=== PATIENT | female | born 1960 | race Asian ===

== ENCOUNTER → 2024-06-09 | Outpatient (CLI) | payer OTHER, SELFPAY ==
--- NOTE | 2024-06-09 14:30 | XR_ITS ---
Examination: CT chest, without intravenous contrast. Sagittal and coronal 2-D reconstructions. Exam date and time: June 09, 2024 1441 hours Comparison December 02, 2023 INDICATIONS: Diagnosis malignant neoplasm upper outer quadrant left female breast diagnosis 2017 postlumpectomy, new 2 mm pulmonary nodule left lower lobe on CT chest December 02, 2023 CTDI:vol (mGy) 6.49 DLP: (mGycm) 238 Technique: Multiple 3.0 mm axial sections of the chest to been obtained. Bone and lung density settings are obtained. Sagittal and coronal 2-D reconstructions have been obtained. Low dose protocols were performed. One or more of the following dose reduction techniques were used; automated exposure control, adjustment of the mA and/or KV according to patient size, use of iterative reconstruction technique. Findings: No thoracic aortic aneurysm dilatation Pulmonary artery segments are not enlarged No paratracheal tracheobronchial or adenopathy Multiple subcentimeter bilateral pulmonary nodules again noted with no definite new pulmonary nodules No interval pneumonia or pulmonary edema No visualized liver or splenic lesion Absent gallbladder No pancreatic mass IMPRESSION: No definite change in multiple bilateral subcentimeter pulmonary nodules, recommend 1 continued 6 month follow-up CT chest without contrast
== END | disposition home or self-care (01) ==
PROVIDERS: PCP Family Medicine; Referring Provider Nurse Practitioner Family; Visit Provider Nurse Practitioner Family
DX: R91.8 Other nonspecific abnormal finding of lung field (principal); C50.412 Malignant neoplasm of upper-outer quadrant of left female breast
CPT/HCPCS: 71250

== ENCOUNTER → 2024-06-30 | Outpatient (CLI) | payer OTHER, SELFPAY ==
--- NOTE | 2024-06-30 09:47 | XR_ITS ---
Examination: PA lateral chest 2 views TECHNIQUE: Upright PA lateral chest 2 views Exam date and time: June 30, 2024 0958 hours Comparison November 05, 2023 INDICATIONS: Coughing 5 days. FINDINGS: Prominent hyperexpansion Scarring versus pneumonia in the lingular segment left upper lobe No interval pneumonia Normal heart size No pulmonary edema IMPRESSION: COPD with prominent hyperexpansion Parenchymal disease in the lingular segment left upper lobe, differential would include pneumonia, pulmonary scar formation, clinical correlation advised
[2024-06-30 11:21] LABS: Basophils % (Auto) 0 % (0-2.5); Eosinophils # (Auto) 0.1 Thou/mm3 (0.0-0.5); Eosinophils % (Auto) 3 % (0-10); Hematocrit 36.3 % (36.0-46.0); Immature Granulocytes % (Auto) 0 % (0-0); Immature Granulocytes Auto 0.02 Thou/mm3 (0.00-0.00); Lymphocytes # (Auto) 1.6 Thou/mm3 (1.0-4.8); Lymphocytes % (Auto) 33 % (10-50); Mean Corpuscular HGB Conc 30.3 g/dl (31.0-37.0); Mean Corpuscular Hemoglobin 21.5 pg (25.0-35.0); Mean Corpuscular Volume 71 fL (80-100); Monocytes # (Auto) 0.4 Thou/mm3 (0.0-0.8); Monocytes % (Auto) 7 % (0-12); Neutrophils # (Auto) 2.7 Thou/mm3 (1.8-7.7); Neutrophils % (Auto) 56 % (37-80); Nucleated Red Blood Cell % 0 /100 WBC (0); Platelet Count 213 Thou/mm3 (140-440); RDW Standard Deviation 34.7 fL (36.4-46.3); Red Blood Count 5.12 Miln/mm3 (4.00-5.20); White Blood Count 4.9 Thou/mm3 (3.6-11.0)
[2024-06-30 11:41] LABS: Alanine Aminotransferase 10 U/L (10-49); Albumin, Serum 4.5 gm/dL (3.4-4.8); Albumin/Globulin Ratio 1.7 (1.2-2.2); Alkaline Phosphatase 32 U/L (46-116); Anion Gap 11 (7-16); Aspartate Amino Transferase 20 U/L (0-34); BUN/Creatinine Ratio 17 Ratio (12-20); Bilirubin,Total 0.4 mg/dL (0.3-1.2); Blood Urea Nitrogen 12 mg/dL (9-23); Calcium 9.4 mg/dL (8.3-10.6); Calcium (Corrected) 9.4 mg/dL (8.5-10.1); Carbon Dioxide 26.2 mMol/L (20.0-31.0); Chloride 105 mMol/L (98-107); Creatinine (Component) 0.7 mg/dL (0.6-1.3); Globulin 2.6 gm/dL (2.3-3.5); Glucose 92 mg/dL (74-106); Osmolality,Calculated 282 (275-295); Potassium 3.7 mMol/L (3.4-5.1); Sodium 142 mMol/L (136-145); Total Protein 7.1 gm/dL (5.7-8.2); eGFR > 60 See Note
== END | disposition home or self-care (01) ==
PROVIDERS: PCP Family Medicine; Referring Provider Family Medicine; Visit Provider Family Medicine
DX: J44.9 Chronic obstructive pulmonary disease, unspecified (principal); R91.8 Other nonspecific abnormal finding of lung field; R05.1 Acute cough
CPT/HCPCS: 36415; 71046; 80053; 85025

== ENCOUNTER → 2024-07-04 | Outpatient (CLI) | payer OTHER, SELFPAY | END | disposition home or self-care (01) | LOC: SLDO 09:22 | PROVIDERS: PCP Family Medicine; Referring Provider Family Medicine; Visit Provider Family Medicine | DX: R05.9 Cough, unspecified (principal); R04.2 Hemoptysis | CPT/HCPCS: 87205 ==

== ENCOUNTER → 2024-07-06 | Outpatient (CLI) | payer OTHER, SELFPAY ==
[2024-07-06 11:32] LABS: Quantiferon-TB* See Sep Rpt
[2024-07-06 13:45] LABS: Basophils % (Auto) 1 % (0-2.5); Eosinophils # (Auto) 0.1 Thou/mm3 (0.0-0.5); Eosinophils % (Auto) 2 % (0-10); Hematocrit 38.6 % (36.0-46.0); Hemoglobin 11.9 g/dL (12.0-16.0); Immature Granulocytes % (Auto) 0 % (0-0); Immature Granulocytes Auto 0.01 Thou/mm3 (0.00-0.00); Lymphocytes % (Auto) 35 % (10-50); Mean Corpuscular HGB Conc 30.8 g/dl (31.0-37.0); Mean Corpuscular Hemoglobin 21.6 pg (25.0-35.0); Mean Corpuscular Volume 70 fL (80-100); Monocytes # (Auto) 0.3 Thou/mm3 (0.0-0.8); Monocytes % (Auto) 6 % (0-12); Neutrophils # (Auto) 3.2 Thou/mm3 (1.8-7.7); Neutrophils % (Auto) 57 % (37-80); Nucleated Red Blood Cell % 0 /100 WBC (0); Platelet Count 254 Thou/mm3 (140-440); RDW Standard Deviation 34.5 fL (36.4-46.3); Red Blood Count 5.52 Miln/mm3 (4.00-5.20); White Blood Count 5.6 Thou/mm3 (3.6-11.0)
[2024-07-06 13:56] LABS: Alanine Aminotransferase 12 U/L (10-49); Albumin, Serum 4.9 gm/dL (3.4-4.8); Albumin/Globulin Ratio 1.8 (1.2-2.2); Alkaline Phosphatase 34 U/L (46-116); Anion Gap 9 (7-16); Aspartate Amino Transferase 18 U/L (0-34); BUN/Creatinine Ratio 20 Ratio (12-20); Bilirubin,Total 0.5 mg/dL (0.3-1.2); Blood Urea Nitrogen 14 mg/dL (9-23); Calcium 9.8 mg/dL (8.3-10.6); Calcium (Corrected) 9.8 mg/dL (8.5-10.1); Carbon Dioxide 28.5 mMol/L (20.0-31.0); Chloride 103 mMol/L (98-107); Creatinine (Component) 0.7 mg/dL (0.6-1.3); Globulin 2.7 gm/dL (2.3-3.5); Glucose 78 mg/dL (74-106); Osmolality,Calculated 278 (275-295); Sodium 140 mMol/L (136-145); Total Protein 7.6 gm/dL (5.7-8.2); eGFR > 60 See Note
[2024-07-06 14:24] LABS: Ferritin 432 ng/mL (7.3-270.7); Total Iron Binding Capacity 330 mcg/dL (250-425)
[2024-07-06 14:27] LABS: CA 15-3 8.1 U/mL (<32.4); Folate 21.26 ng/mL (>5.38); Vitamin B12 416 pg/mL (211-911)
[2024-07-06 14:34] LABS: Iron 96 mcg/dL (50-170); Percent Iron Saturation 29 % (20-55); Unsaturated Iron Binding 234 (225-295)
[2024-07-06 14:48] LABS: HIV (1&2) Antibody Rapid Non-Reactive
[2024-07-07 14:35] LABS: Cocci Serology, IgM Negative (Negative)
[2024-07-08 14:13] LABS: Cocci Serology, IgG Negative (Negative)
== END | disposition home or self-care (01) ==
PROVIDERS: PCP Family Medicine; Referring Provider Internal Medicine Hematology & Oncology; Visit Provider Internal Medicine Hematology & Oncology
DX: C50.412 Malignant neoplasm of upper-outer quadrant of left female breast (principal)
CPT/HCPCS: 36415; 80053; 82607; 82728; 82746; 83540; 83550; 85025; 86300; 86331; 86480; 86635; 86703

== ENCOUNTER → 2024-07-18 | Outpatient (CLI) | payer OTHER, SELFPAY ==
[2024-07-18 13:30] LABS: Alanine Aminotransferase 13 U/L (10-49); Albumin, Serum 4.6 gm/dL (3.4-4.8); Albumin/Globulin Ratio 1.6 (1.2-2.2); Alkaline Phosphatase 35 U/L (46-116); Anion Gap 10 (7-16); Aspartate Amino Transferase 12 U/L (0-34); BUN/Creatinine Ratio 20 Ratio (12-20); Bilirubin,Total 0.3 mg/dL (0.3-1.2); Blood Urea Nitrogen 12 mg/dL (9-23); Calcium 9.7 mg/dL (8.3-10.6); Calcium (Corrected) 9.7 mg/dL (8.5-10.1); Carbon Dioxide 27.2 mMol/L (20.0-31.0); Chloride 104 mMol/L (98-107); Creatinine (Component) 0.6 mg/dL (0.6-1.3); Globulin 2.9 gm/dL (2.3-3.5); Glucose 92 mg/dL (74-106); Osmolality,Calculated 280 (275-295); Potassium 3.8 mMol/L (3.4-5.1); Sodium 141 mMol/L (136-145); Total Protein 7.5 gm/dL (5.7-8.2); eGFR > 60 See Note
[2024-07-18 16:41] LABS: Basophils % (Auto) 0 % (0-2.5); Eosinophils # (Auto) 0.1 Thou/mm3 (0.0-0.5); Eosinophils % (Auto) 2 % (0-10); Hematocrit 36.9 % (36.0-46.0); Hemoglobin 11.1 g/dL (12.0-16.0); Immature Granulocytes % (Auto) 0 % (0-0); Immature Granulocytes Auto 0.02 Thou/mm3 (0.00-0.00); Lymphocytes # (Auto) 2.9 Thou/mm3 (1.0-4.8); Lymphocytes % (Auto) 35 % (10-50); Mean Corpuscular HGB Conc 30.1 g/dl (31.0-37.0); Mean Corpuscular Hemoglobin 21.3 pg (25.0-35.0); Mean Corpuscular Volume 71 fL (80-100); Monocytes # (Auto) 0.4 Thou/mm3 (0.0-0.8); Monocytes % (Auto) 5 % (0-12); Neutrophils # (Auto) 4.8 Thou/mm3 (1.8-7.7); Neutrophils % (Auto) 58 % (37-80); Nucleated Red Blood Cell % 0 /100 WBC (0); Platelet Count 227 Thou/mm3 (140-440); RDW Standard Deviation 35.1 fL (36.4-46.3); White Blood Count 8.3 Thou/mm3 (3.6-11.0)
== END | disposition home or self-care (01) ==
PROVIDERS: PCP Family Medicine; Referring Provider Nurse Practitioner Family; Visit Provider Nurse Practitioner Family
DX: C50.412 Malignant neoplasm of upper-outer quadrant of left female breast (principal)
CPT/HCPCS: 36415; 80053; 85025

== ENCOUNTER 2024-07-20 13:09 | Outpatient (RCR) | payer OTHER, SELFPAY ==
--- NOTE | 2024-07-05 11:39 | CTCFLWUP_ITS ---
Patient: VANESSA HARPER : 1960 Page 2 of 2 FOLLOW UP NOTE DATE OF SERVICE: 07/05/2024 NAME: VANESSA HARPER ACCOUNT: [id number] : 1960 AGE: 63 INTERVAL HISTORY: Patient is complaining of hematemesis. Patient has been coughing and throwing blood. Patient states she gets chunks of blood. Patient is a [place] who moved here. 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 She states she has been also losing weight and have night rise of temperature. She started feeling feverish in the evening. ONCOLOGY HISTORY: DIAGNOSIS: Malignant neoplasm of upper-outer quadrant of left female breast [ICD10] C50.412 DATE OF DIAGNOSIS: 05/14/2017 STAGE/TNM: T1c TREATMENT HISTORY: Care?Plan Start?Date Cycle Day Intent DOXOrubicin?60,?Cyclophos?600 07/07/2017 1 14 Curative?(adjuvant) DOXOrubicin?60,?Cyclophos?600?+?G 07/29/2017 1 21 Curative?(adjuvant) PACLItaxel?80mg 11/02/2017 1 28 Curative?(adjuvant) PROLia?60mg?every?6?months 07/11/2021 1 180 Palliative HISTORY OF PRESENT ILLNESS: HISTORY OF PRESENT ILLNESS: Vanessa Harper is a 60-year-old Cuban speaking, postmenopausal [place] female with following history. 03/27/2017: Left breast diagnostic mammogram showed a suspicious mass at 3 o'clock. Ultrasound done on the same day showed a 1.5 x 1.2 x 1.1 cm hypoechoic area with irregular borders and mild vasculature at 3 o'clock position. 04/14/2017: Left breast biopsy of the mass lesion showed infiltrating ductal carcinoma ER positive, P R negative HER- 2/bia negative with [place] score of grade 3, 02/04. 07/14/2016: Patient had left breast lumpectomy and sentinel lymph node biopsy. Pathology specimen show ed a 2.6 x 1.6 x 1.5 cm unifocal high-grade medullary carcinoma. 7 lymph nodes were negative for meta static disease Oncotype DX recurrence score is 40. 07/29/2017-2017: Patient received 4 cycles of AC. 11/02/2017-03/10/2018: Patient received 12 weekly doses of Taxol. She is currently taking Neurontin for mild tingling in the fingers and feet. 04/12/2018-06/03/2018: Patient had 6300 cGy of radiation to the left breast. 06/10/2018 patient is in the clinic today for follow-up. She still has mild radiation dermatitis on t he left breast. She complains of weakness and fatigue. Other than that she seems to be doing okay. 06/24/2018: Bone density test showed osteoporosis. 08/11/2017: Patient complains of weight loss. She lost about 4 pounds. Her current weight is about 93 pounds. She also complains of loss of appetite as well as left-sided chest pains which she grades 7/1 0. She has been having this pain for last 4 weeks. She complains of dry cough. Denies any abdominal p ain. : Patient was started on tamoxifen in view of osteoporosis. 09/16/2018: Patient had CT scan of the chest abdomen and pelvis with IV contrast which showed the foll owing findings. New small pulmonary nodules in the right middle lobe and left upper lobe, not seen on the September 17 018 exam, worrisome for early metastatic pulmonary nodular disease Patient: VANESSA HARPER 008: 1960 Page 2 of 4 The 6 mm noncalcified pulmonary nodule left upper lobe ple ural-based would be amenable to CT-guided biopsy as clinically warranted 09/28/2018: QuantiFERON-TB sushma t positive. 10/20/2018: CT-guided biopsy of the left lung mass did not show any evidence of malignancy.The 6 mm no ncalcified pulmonary nodule left upper lobe pleural-based would be amenable to CT-guided biopsy as cl inically warranted 09/28/2018: QuantiFERON-TB test positive. 10/20/2018: CT-guided biopsy of the left lung mass did not show any evidence of malignancy. 11/01/2018: Patient was started on INH, rifampin as well as ethambutol for suspicious pulmonary tubercu losis. However Dr. ramires called Nayana Harper last and told her to stop taking the medicatio n since the cultures came back negative as per Ms. Harper. He prescribed oral antibiotics which lore alfaro is planning on starting from today. 12/16/2018: CT scan of the chest abdomen and pelvis with IV contrast showed stable bilateral tiny pulm onary nodules without any new nodules. 02/10/2020: PET CT scan? Stable bilateral non hypermetabolic pulmonary nodules excepting right lower l obe pulmonary nodule, now 6 mm compared to IS mm on December 23, 2019 CT study No interval metastatic dis ease Stable 8 mm focal sclerosis posterior left iliac bone. compared to l0 mm on December 23, 2019 020: CT -guided percutaneous lung biopsy of the right lung 15 mm nodule? DIAGNOSIS: Right lung, biops y: Scant benign lung tissues with focal chronic in?ammation. Fragments of skeletal muscle and ?broadipose tissues. Multiple levels examined. No malignancy in specimen. 11/19/2020: CT scan of the chest with IV contrast?Findings: No thoracic aortic aneurysmal dilatation o r dissection No pulmonary artery emboli. Minimal calci?cation septal branch left anterior descending coronary artery No paratraehcal tracheobr onehial or bronchopulmonary adenopathy 4 mm pulmonary nodule right upper lobe compared to 3.5 mm on P ET/C T February 092019 6 mm pulmonary nodule right middle lobe compared to 7 mm on January 7 mm pulmonary nodul e right lower lobe compared to 7 mm on January 2 mm pulmonary nodule left lower lobe compared to 2 mm on January I3 mm pulmonary nodule lelt lower lobe. image ()4. not seen on January 4 mm pulmonary nodule right lower lobe anteriorly not seen on January No focal liver le sions or biliary tract dilatation Absent gallbladder Common hepatic duct 9 mm No pancreatic mass No a drenal mass Aorta normal size Intact osseous structures lMPRESSlON: Compared with PET/CT February 09 020: New 13 mm pulmonary nodule left lower lobe New 4 mm pulmonary nodule right lower lobe 01/17/2021: CT scan of the abdomen and pelvis with IV contrast- Impression: No acute process in the abdomen or p terrence 06/09/2024 CT scan no definite change in multiple bilateral subcentimeter pulmonary nodules continue to follow 6 months OTHER MEDICAL HISTORY/CONDITIONS: FAMILY HISTORY: 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 Citracal plus D - 315 mg-5 mcg (200 unit) 1 tab Daily 2. ferrous sulfate - 325 mg (65 mg iron) 1 tab Daily 3. tamoxifen - 20 mg 1 tab Daily Medications Last Reconciled by Lashon Palomares MA on 07/05/2024 ALLERGIES: sumatriptan succinate REVIEW OF SYSTEMS: A complete 14-point review of systems was performed and is negative except as noted in interval histo ry. PHYSICAL EXAMINATION: VITAL SIGNS: Temperature?99.9, B/P?132/78, Oxygen?Saturation?99% Weight?89.2?lbs PAIN: 2 - Mild pain ECOG Performance Status: 1 - Symptomatic; ambulatory; restricted in strenuous activity GENERAL APPEARANCE: Appears well, in no apparent distress, appropriately interactive. HEENT: Normocephalic, no temporal wasting, normal conjunctiva, no scleral icterus, normal hearing, li ps without lesions, neck normal range of motion. CARDIOVASCULAR: Not assessed. PULMONARY: Normal respiratory effort, no respiratory distress or use of accessory muscles, speaking i n full sentences, no tachypnea. EXTREMITIES: No pedal edema or cyanosis. SKIN: Normal skin appearance. NEUROLOGIC: Alert and oriented x4. PSHYCHIATRIC: Appropriate affect, mood normal, behavior normal, intact thought and speech. LABORATORY DATA: I have personally reviewed and interpreted each of the patient?s relevant lab tests, abnormal finding s are below: Date 06/30/24 ??WHITE?BLOOD?COUNT?(Thou/mm3) 4.9 ??RED?BLOOD?COUNT?(Miln/mm3) 5.12 ??HEMOGLOBIN?(gm/dl) 11.0?L ??HEMATOCRIT?(%) 36.3 ??PLATELET?COUNT?(Thou/mm3) 213 ??NEUTROPHILS?%,?AUTO?(%) 56 ??LYMPH?%,?AUTO?(%) 33 ??NEUTROPHILS,?AUTO?(Thou/mm3) 2.7 ASSESSMENT/PLAN: #1 hematemesis. Patient has been followed in clinic with the history of QuantiFERON positive I do not see in the chart if patient ever got a bronchoscopy Patient was sent for appointment with Dr. 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 Pending appointment with Dr. 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 I looked at patient's CT scan and is concerning. 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 Patigeovanny alfaro may be having a bleeding vessel as she has been coughing chunks of blood. CT scan of chest abdomen pelvis, done 12/02/2023, showed new 2 mm pulmonary nodule left lobe, no inter nicci metastatic disease in the abdomen or pelvis, 6 month follow up scan recommended, 12/02/2023. Has e xisting order for 05/2024. 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 Bone density test showed slight improvement in the lumbar mineralization, (06/19/2023). Continues to be on tamoxifen and tolerating it very well, (07/14/2018). I advised her to stop it. CT-guided biopsy of the pulmonary nodule showed caseating granulomatous inflammation. No evidence of malignancy, (04/17/2021). I will repeat her serum QuantiFERON CT scan and sent to pulmonology #2 osteoporosis, currently on Prolia and Citracal tablets. #3 stage IIa ER positive, OK positive, HER-2/bia negative high Oncotype DX recurrence score of 40 med ullary carcinoma of the left breast. Status post adjuvant chemotherapy, radiation therapy. Currently on adjuvant tamoxi fen. Advised patient to stop taking tamoxifen as well as iron tablets Continue Prolia injections. Continue Citracal tablet p.o. Twice daily RTC in 4 weeks CBC CMP serum QuantiFERON CT scan of the chest with IV contrast cocci titers pulmonary referral RETURN TO CLINIC: I will see her in 4 weeks BILLING AND COMPLIANCE: I reviewed external records from providers outside my specialty as summarized above. I spent a total of 50 minutes on this patient?s care on the day of their visit excluding time spent related to any bi lled procedures. This time includes time spent with the patient as well as time spent documenting in the medical record, reviewing patients records and tests, obtaining history, placing orders, communi cating with other healthcare professionals, counseling the patient, family or caregiver, and/or care coordination for the diagnoses above. Electronically Signed by: Dawood Oropeza MD T: 11:37 AM CC: Lashon?Hugo,?, Yosvany?Suresh,? PCP: Madhav Stapleton Referring: Madhav Stapleton This document was completed utilizing speech recognition software. Grammatical errors, random word in sertions, pronoun errors, and incomplete sentences are an occasional consequence of this system due t o software limitations, ambient noise, and hardware issues. Any formal questions or concerns about th e content, text or information contained within the body of this dictation should be directly address ed to the provider for clarification.
== END 2024-07-29 23:59 | disposition home or self-care (01) ==
LOC: SCTC 13:09
PROVIDERS: PCP Family Medicine; Referring Provider Internal Medicine; Visit Provider Nurse Practitioner Family
DX: K92.0 Hematemesis (principal); C50.412 Malignant neoplasm of upper-outer quadrant of left female breast; Z17.0 Estrogen receptor positive status [ER+]; Z17.21 Progesterone receptor positive status; Z17.32 Human epidermal growth factor receptor 2 negative status; M81.0 Age-related osteoporosis without current pathological fracture; Z92.21 Personal history of antineoplastic chemotherapy; Z92.3 Personal history of irradiation; Z79.810 Long term (current) use of selective estrogen receptor modulators (SERMs); R91.8 Other nonspecific abnormal finding of lung field
CPT/HCPCS: 96372; 99212; J0897; G0463

== ENCOUNTER → 2024-08-03 | Outpatient (CLI) | payer OTHER, SELFPAY ==
--- NOTE | 2024-08-03 11:30 | XR_ITS ---
Examination: CT chest with intravenous contrast CT chest without intravenous contrast 2-D reconstructions Date and time of exam:July 03, 2024 1138 hours Comparison June 09, 2024 INDICATIONS: Diagnosis malignant neoplasm upper outer quadrant left female breast 2017, restaging CTDI:vol (mGy) 11.04 DLP: (mGycm) 428.3 Technique: Multiple axial sections of the thorax have been obtained. 3 mm slice thickness, from the hemidiaphragms to above the apices of the lungs. Mediastinal and lung density settings have been obtained. Intravenous contrast administered 60 cc [id number]. Noncontrast images have also been obtained. 2-D sagittal coronal images obtained. Low dose protocols were performed. One or more of the following dose reduction techniques were used; automated exposure control, adjustment of the mA and/or KV according to patient size, use of iterative reconstruction technique. Findings: No thoracic aortic aneurysmal dilatation or dissection Pulmonary artery segments are not enlarged No paratracheal tracheobronchial or bronchopulmonary adenopathy Stable bilateral pulmonary nodules New 4 mm pulmonary nodule right lower lobe image 237 No pneumonia or pulmonary edema No focal liver or splenic lesions No adrenal mass IMPRESSION: One new 4 mm pulmonary nodule right lower lobe, suggest continued 6 month follow-up CT chest without contrast
== END | disposition home or self-care (01) ==
PROVIDERS: PCP Internal Medicine Hematology & Oncology; Referring Provider Internal Medicine Hematology & Oncology; Visit Provider Internal Medicine Hematology & Oncology
DX: R91.1 Solitary pulmonary nodule (principal); C50.412 Malignant neoplasm of upper-outer quadrant of left female breast
CPT/HCPCS: 71270; A4649; Q9967

== ENCOUNTER 2024-11-29 11:22 | Outpatient (RCR) | payer OTHER, SELFPAY ==
--- NOTE | 2024-11-30 10:16 | CTCFLWUP_ITS ---
Patient: VANESSA HARPER : 1960 Page 2 of 2 FOLLOW UP NOTE DATE OF SERVICE: 11/29/2024 NAME: VANESSA HARPER ACCOUNT: [id number] : 1960 AGE: 64 INTERVAL HISTORY: Subjective: Chief Complaint Cough with occasional blood in sputum, chest pain radiating to back, night sweats, weight loss, fatigue, loss of appetite History of Present Illness Meredith Mazariegos, a patient from the [facility], presents for follow-up regarding a previous diagnosis of Mycobacterium avium complex (MAC) infection. The patient reports persistent symptoms including cough, occasional blood in sputum, chest pain radiating to the back, and fatigue. The patient has been experiencing a chronic cough, which at times produces blood-tinged sputum. She mentions difficulty in producing sputum samples for testing, despite attempts with an inhaler. The chest pain is described as bothersome, extending from the chest to the back. The patient also reports a history of night sweats and weight loss, though her weight has increased from 86 pounds in 2022 to the current 93 pounds. She expresses a desire to gain more weight but struggles with poor appetite and difficulty digesting food. Fatigue is a significant concern for the patient, particularly in the mornings. She attributes this to her longstanding anemia, which predates her hypertension diagnosis. The patient reports feeling tired upon waking and throughout the day, impacting her daily functioning. The patient denies being immunocompromised and states she has not been sick recently. She mentions a recent visit to a specialist in [place], who confirmed the absence of Mycobacterium tuberculosis complex, clarifying her diagnosis as an atypical mycobacterial infection rather than tuberculosis. Medications and Supplements - Inhaler - B12 supplement - Patient has been taking this at home - Silver centrum multivitamin - Mentioned as an alternative to B12 supplement Review of Systems General: Positive for fatigue, weight loss, and decreased appetite. Respiratory: Positive for occasional cough and chest pain. Gastrointestinal: Positive for difficulty digesting food. Musculoskeletal: Positive for back pain. Objective: Vital Signs - Weight: 93 pounds Laboratory, Imaging, and Diagnostic Test Results - Date: Not specified - Hemoglobin: 11.1 g/dL - B12: Low (specific value not provided) - Creatinine: High (specific value not provided) - LDL: Normal (specific value not provided) - Previous results: - Hemoglobin: 10 g/dL (date not specified) - Mammogram (January 2024): Heterogeneity of scone, negative for malignancy - Order routine screening mammogram ONCOLOGY HISTORY: DIAGNOSIS: Malignant neoplasm of upper-outer quadrant of left female breast [ICD10] C50.412 DATE OF DIAGNOSIS: 05/14/2017 STAGE/TNM: T1c TREATMENT HISTORY: Care?Plan Start?Date Cycle Day Intent PACLItaxel?80mg 11/02/2017 1 28 Curative?(adjuvant) PROLia?60mg?every?6?months 07/11/2021 1 180 Palliative DOXOrubicin?60,?Cyclophos?600?+?G 07/29/2017 1 21 Curative?(adjuvant) DOXOrubicin?60,?Cyclophos?600 07/07/2017 1 14 Curative?(adjuvant) HISTORY OF PRESENT ILLNESS: HISTORY OF PRESENT ILLNESS: Vanessa Harper is a 64-year-old Colombian speaking, postmenopausal Indonesian female with following history. 03/27/2017: Left breast diagnostic mammogram showed a suspicious mass at 3 o'clock. Ultrasound done on the same day showed a 1.5 x 1.2 x 1.1 cm hypoechoic area with irregular borders and mild vasculature at 3 o'clock position. 04/14/2017: Left breast biopsy of the mass lesion showed infiltrating ductal carcinoma ER positive, OR negative HER- 2/bia negative with Melisa score of grade 3, 8/9. 07/14/2016: Patient had left breast lumpectomy and sentinel lymph node biopsy. Pathology specimen showed a 2.6 x 1.6 x 1.5 cm unifocal high-grade medullary carcinoma. 7 lymph nodes were negative for metastatic disease Oncotype DX recurrence score is 40. 07/29/2017-49 2018: Patient received 4 cycles of AC. 11/02/2017-03/10/2018: Patient received 12 weekly doses of Taxol. She is currently taking Neurontin for mild tingling in the fingers and feet. 04/12/2018-06/03/2018: Patient had 6300 cGy of radiation to the left breast. 06/10/2018 patient is in the clinic today for follow-up. She still has mild radiation dermatitis on the left breast. She complains of weakness and fatigue. Other than that she seems to be doing okay. 06/24/2018: Bone density test showed osteoporosis. 08/11/2017: Patient complains of weight loss. She lost about 4 pounds. Her current weight is about 93 pounds. She also complains of loss of appetite as well as left-sided chest pains which she grades 7/10. She has been having this pain for last 4 weeks. She complains of dry cough. Denies any abdominal pain. : Patient was started on tamoxifen in view of osteoporosis. 09/16/2018: Patient had CT scan of the chest abdomen and pelvis with IV contrast which showed the following findings. 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 10/20/2018: CT-guided biopsy of the left lung mass did not show any evidence of malignancy. 11/01/2018: Patient was started on INH, rifampin as well as ethambutol for suspicious pulmonary tuberculosis. However Dr. ramires called Ms. Harper last and told her to stop taking the medication since the cultures came back negative as per Ms. Harper. He prescribed oral antibiotics which patient is planning on starting from today. 12/16/2018: CT scan of the chest abdomen and pelvis with IV contrast showed stable bilateral tiny pulmonary nodules without any new nodules. 02/10/2020: PET CT scan? Stable bilateral non hypermetabolic pulmonary nodules excepting right lower lobe pulmonary nodule, now 6 mm compared to IS mm on December 23, 2019 CT study No interval metastatic disease Stable 8 mm focal sclerosis posterior left iliac bone. compared to l0 mm on December 23, 2019 02/21/2020: CT - guided percutaneous lung biopsy of the right lung 15 mm nodule? DIAGNOSIS: Right lung, biopsy: Scant benign lung tissues with focal chronic in?ammation. Fragments of skeletal muscle and ?broadipose tissues. Multiple levels examined. No malignancy in specimen. 11/19/2020: CT scan of the chest with IV contrast?Findings: No thoracic aortic aneurysmal dilatation or dissection No pulmonary artery emboli. Minimal calci?cation septal branch left anterior descending coronary artery No paratraehcal tracheobronehial or bronchopulmonary adenopathy 4 mm pulmonary nodule right upper lobe compared to 3.5 mm on PET/C T February 092019 6 mm pulmonary nodule right middle lobe compared to 7 mm on January 7 mm pulmonary nodule right lower lobe compared to 7 mm on January 2 mm pulmonary nodule left lower lobe compared to 2 mm on January I3 mm pulmonary nodule lelt lower lobe. image ()4. not seen on January 4 mm pulmonary nodule right lower lobe anteriorly not seen on January No focal liver lesions or biliary tract dilatation Absent gallbladder Common hepatic duct 9 mm No pancreatic mass No adrenal mass Aorta normal size Intact osseous structures lMPRESSlON: Compared with PET/CT February 092019: New 13 mm pulmonary nodule left lower lobe New 4 mm pulmonary nodule right lower lobe 01/17/2021: CT scan of the abdomen and pelvis with IV contrast- Impression: No acute process in the abdomen or pelvis 06/09/2024 CT scan no definite change in multiple bilateral subcentimeter pulmonary nodules continue to follow 6 months OTHER MEDICAL HISTORY/CONDITIONS: FAMILY HISTORY: 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 B12 - 5,000-100 mcg 1 tab Daily 2. Citracal plus D - 315 mg-5 mcg (200 unit) 1 tab Daily Medications Last Reconciled by Maeve Chu MA on 11/29/2024 ALLERGIES: sumatriptan succinate REVIEW OF SYSTEMS: A complete 14-point review of systems was performed and is negative except as noted in interval history. PHYSICAL EXAMINATION: VITAL SIGNS: Temperature?98.2, B/P?127/78, Oxygen?Saturation?98% PAIN: 2 - Mild pain ECOG Performance Status: 0 - Asymptomatic and fully active GENERAL APPEARANCE: Appears well, in no apparent distress, appropriately interactive. HEENT: Normocephalic, no temporal wasting, normal conjunctiva, no scleral icterus, normal hearing, lips without lesions, neck normal range of motion. CARDIOVASCULAR: Not assessed. PULMONARY: Normal respiratory effort, no respiratory distress or use of accessory muscles, speaking in full sentences, no tachypnea. EXTREMITIES: No pedal edema or cyanosis. SKIN: Normal skin appearance. NEUROLOGIC: Alert and oriented x4. PSHYCHIATRIC: Appropriate affect, mood normal, behavior normal, intact thought and speech. LABORATORY DATA: I have personally reviewed and interpreted each of the patient?s relevant lab tests, abnormal findings are below: Date 07/06/24 07/18/24 ??WHITE?BLOOD?COUNT?(Thou/mm3) 5.6 ? 8.3 ??RED?BLOOD?COUNT?(Miln/mm3) 5.52?H ? 5.20 ??HEMOGLOBIN?(gm/dl) 11.9?L ? 11.1?L ??HEMATOCRIT?(%) 38.6 ? 36.9 ??PLATELET?COUNT?(Thou/mm3) 254 ? 227 ??NEUTROPHILS?%,?AUTO?(%) 57 ? 58 ??LYMPH?%,?AUTO?(%) 35 ? 35 ??NEUTROPHILS,?AUTO?(Thou/mm3) 3.2 ? 4.8 ??GLUCOSE,RANDOM?(mg/dL) 78 92 ? ??BLOOD?UREA?NITROGEN?(mg/dL) 14 12 ? ??CREATININE?(mg/dL) 0.70 0.60 ? ??SODIUM?(mmol/L) 140 141 ? ??POTASSIUM?(mmol/L) 4.0 3.8 ? ??CHLORIDE?(mmol/L) 103 104 ? ??CrCl?(CandG)?(ml/min) 52.54 61.30 ? ??AST/SGOT?(Unit/L) 18 12 ? ??ALT/SGPT?(Unit/L) 12 13 ? ??ALKALINE?PHOSPHATASE?(Unit/L) 34?L 35?L ? ??BILIRUBIN,?TOTAL?(mg/dL) 0.5 0.3 ? ??PROTEIN?TOTAL?(gm/dl) 7.6 7.5 ? ??ALBUMIN,?SERUM?(gm/dl) 4.9?H 4.6 ? ??GLOBULIN?(gm/dl) 2.7 2.9 ? ??ALBUMIN/GLOBULIN?RATIO 1.8 1.6 ? ??CALCIUM,?SERUM?(mg/dL) 9.8 9.7 ? ??CALCIUM?SERUM?(CORRECTED)?(mg/dL) 9.8 9.7 ? ASSESSMENT/PLAN: Assessment and Plan: Meredith Mazariegos, a patient from the [facility] with a history of M. avium infection, presents with concerns of persistent cough, occasional blood in sputum, chest pain, and unintentional weight loss. Mycobacterium avium complex (MAC) infection Assessment: Patient has a history of M. avium infection, which was confirmed by a specialist in [place]. The infection is classified as an atypical mycobacterial infection, distinct from Mycobacterium tuberculosis complex. The patient reports symptoms including persistent cough, occasional blood in sputum, chest pain radiating to the back, and previous history of night sweats and weight loss. However, the patient is not immunocompromised, which is typically necessary for M. avium to cause significant disease in healthy individuals. Recent weight trends show improvement, with a gain of 7 pounds since 2022 (from 86 to 93 pounds). Plan: - Order CT scan of the chest to evaluate current status of infection - Recommend sputum induction with hypertonic saline if patient unable to produce sputum spontaneously - Advise collection of [facility] sputum samples for further testing - Continue monitoring weight and appetite Anemia Assessment: Patient reports a long-standing history of anemia predating hypertension diagnosis. Recent lab work shows hemoglobin A of 11.1 g/dL, which has improved from a previous value of 10 g/dL. Workup for anemia has been largely negative, with normal creatinine, folate, and most other values. B12 l evels were noted to be slightly low. Plan: - Start B12 supplementation - Prescribe sublingual B12 tablets - Recommend [id number] multivitamin or B12 supplement as an alternative - Order hemoglobin electrophoresis to evaluate for hemoglobinopathies - Continue monitoring hemoglobin levels Fatigue Assessment: Patient reports persistent fatigue, particularly upon waking in the morning. This may be related to the mild anemia and low B12 levels. Plan: - Initiate B12 supplementation as outlined in anemia plan - Reassess fatigue symptoms at follow-up after initiating B12 supplementation Preventive care Assessment: Patient had a diagnostic mammogram in January of the previous year, which showed heterogeneity but was ultimately negative. Plan: osteoporosis, currently on Prolia and Citracal tablets. Continue Prolia injections. Continue Citracal tablet p.o. Twice daily stage IIa ER positive, OR positive, HER-2/bia negative high Oncotype DX recurrence score of 40 medullary carcinoma of the left breast. Status post adjuvant chemotherapy, radiation therapy. RTC in 4 weeks ORDERS: Order # Description [id number] 3D Mammogram Diagnostic + Bilateral [id number] Comprehensive Metabolic Panel - 12 + CBC with Auto Diff [id number] Hemoglobin Electrophoresis [id number] MD Follow Up [id number] Scan + Chest + With Contrast RETURN TO CLINIC: BILLING AND COMPLIANCE: I reviewed external records from providers outside my specialty as summarized above. I spent a total of 50 minutes on this patient?s care on the day of their visit excluding time spent related to any billed procedures. This time includes time spent with the patient as well as time spent documenting in the medical record, reviewing patients records and tests, obtaining history, placing orders, communicating with other healthcare professionals, counseling the patient, family or caregiver, and/or care coordination for the diagnoses above. Electronically Signed by: Dawood Oropeza MD T: 10:14 AM CC: Lashon?Hugo?, Yosvany?Suresh? PCP: Melodie Lebron Referring: Melodie Lebron This document was completed utilizing speech recognition software. Grammatical errors, random word insertions, pronoun errors, and incomplete sentences are an occasional consequence of this system due to software limitations, ambient noise, and hardware issues. Any formal questions or concerns about the content, text or information contained within the body of this dictation should be directly addressed to the provider for clarification.
== END 2024-12-26 23:59 | disposition home or self-care (01) ==
LOC: SCTC 11:22
PROVIDERS: PCP Family Medicine; Referring Provider Nurse Practitioner Family; Visit Provider Nurse Practitioner Family
DX: C50.412 Malignant neoplasm of upper-outer quadrant of left female breast (principal); Z17.0 Estrogen receptor positive status [ER+]; Z17.21 Progesterone receptor positive status; Z17.32 Human epidermal growth factor receptor 2 negative status; A31.0 Pulmonary mycobacterial infection; M81.0 Age-related osteoporosis without current pathological fracture; D64.9 Anemia, unspecified; Z92.3 Personal history of irradiation; Z92.21 Personal history of antineoplastic chemotherapy
CPT/HCPCS: 99212; G0463

== ENCOUNTER → 2024-11-30 | Outpatient (CLI) | payer OTHER, SELFPAY ==
--- NOTE | 2024-11-30 14:00 | XR_ITS ---
Examination: CT chest, without intravenous contrast. Sagittal and coronal 2-D reconstructions. Exam date and time: November 30, 2024 1347 hours Comparison August 03, 2024 INDICATIONS: Bilateral pulmonary nodules including new pulmonary nodule 4 mm in the right lower lobe on CT chest August 03, 2024, June 09, 2024, December 02, 2023 CTDI:vol (mGy) 5.88 DLP: (mGycm) 205 Technique: Multiple 3.0 mm axial sections of the chest to been obtained. Bone and lung density settings are obtained. Sagittal and coronal 2-D reconstructions have been obtained. Low dose protocols were performed. One or more of the following dose reduction techniques were used; automated exposure control, adjustment of the mA and/or KV according to patient size, use of iterative reconstruction technique. Findings: No paratracheal tracheobronchial or bronchopulmonary adenopathy No thoracic aortic aneurysm dilatation Numerous bilateral pulmonary nodules, new pulmonary nodules in the left lower lobe, 5 mm, 2 mm No pneumonia or pulmonary edema No visualized liver or splenic lesion Absent gallbladder IMPRESSION: New 5 mm in 2 mm pulmonary nodules left lower lobe, recommend continued 3-6 month follow-up CT chest without contrast
== END | disposition home or self-care (01) ==
LOC: CCTX 13:32
PROVIDERS: PCP Family Medicine; Referring Provider Internal Medicine Pulmonary Disease; Visit Provider Internal Medicine Pulmonary Disease
DX: R91.8 Other nonspecific abnormal finding of lung field (principal)
CPT/HCPCS: 71250

== ENCOUNTER → 2024-12-19 | Outpatient (CLI) | payer OTHER, SELFPAY ==
[2024-12-19 09:32] LABS: Misc Send Out* See Sep Rpt
== END | disposition home or self-care (01) ==
LOC: SCTO 09:08
PROVIDERS: PCP Family Medicine; Referring Provider Internal Medicine Hematology & Oncology; Visit Provider Internal Medicine Hematology & Oncology
DX: C50.412 Malignant neoplasm of upper-outer quadrant of left female breast (principal)
CPT/HCPCS: 82340; 82507; 82570; 83735; 83945; 83986; 84105; 84133; 84300; 84392; 84560

== ENCOUNTER → 2024-12-23 | Outpatient (CLI) | payer OTHER, SELFPAY ==
--- NOTE | 2024-12-23 10:00 | XR_ITS ---
Examination: Screening digital mammography, bilateral Computer aided detection 3-D breast Tomosynthesis, bilateral Date and time of exam: December 23, 2024, 0934 hours Compared to mammograms dating to June 09, 2019 Indication: Screening Technique: Nonmagnified MLO, CC views of the breasts to been obtained, reconstructed from 3-D Tomosynthesis images. R2 computer aided detection program utilized for evaluation of suspicious masses and/or abnormal calcifications. 3-D Tomosynthesis images obtained. Findings: The breasts are heterogeneously dense, which may obscure small masses 14 mm focal asymmetry inner right breast CC view, posterior depth, 3.6 cm from the nipple Scar formation outer left breast consistent with patient's history treated left breast carcinoma Impression: BI-RADS Category 0: Incomplete: Need additional imaging evaluation 14 mm focal asymmetry inner right breast CC view, posterior depth, 3.6 cm from the nipple, recommend follow-up spot tomographic views inner upper quadrant right breast as well as bilateral breast sonography to complete the workup
== END | disposition home or self-care (01) ==
LOC: CDIM 09:20
PROVIDERS: PCP Family Medicine; Referring Provider Internal Medicine Hematology & Oncology; Visit Provider Internal Medicine Hematology & Oncology
DX: Z12.31 Encounter for screening mammogram for malignant neoplasm of breast (principal); N64.89 Other specified disorders of breast
CPT/HCPCS: 77063; 77067

== ENCOUNTER → 2025-01-16 | Outpatient (CLI) | payer OTHER, SELFPAY ==
[2025-01-16 13:06] LABS: Basophils # (Auto) 0.0 Thou/mm3 (0.0-0.2); Basophils % (Auto) 0 % (0-2.5); Eosinophils # (Auto) 0.1 Thou/mm3 (0.0-0.5); Eosinophils % (Auto) 2 % (0-10); Hematocrit 37.6 % (36.0-46.0); Hemoglobin 11.7 g/dL (12.0-16.0); Immature Granulocytes Auto 0.02 Thou/mm3 (0.00-0.00); Lymphocytes # (Auto) 2.3 Thou/mm3 (1.0-4.8); Lymphocytes % (Auto) 38 % (10-50); Mean Corpuscular HGB Conc 31.1 g/dl (31.0-37.0); Mean Corpuscular Hemoglobin 21.7 pg (25.0-35.0); Mean Corpuscular Volume 70 fL (80-100); Monocytes # (Auto) 0.4 Thou/mm3 (0.0-0.8); Monocytes % (Auto) 7 % (0-12); Neutrophils # (Auto) 3.3 Thou/mm3 (1.8-7.7); Neutrophils % (Auto) 53 % (37-80); Nucleated Red Blood Cell # 0.00 Thou/mm3 (0.00-0.00); Nucleated Red Blood Cell % 0 /100 WBC (0); Platelet Count 247 Thou/mm3 (140-440); RDW Standard Deviation 34.5 fL (36.4-46.3); Red Blood Count 5.40 Miln/mm3 (4.00-5.20); White Blood Count 6.2 Thou/mm3 (3.6-11.0)
[2025-01-16 13:26] LABS: Alanine Aminotransferase 22 U/L (10-49); Albumin, Serum 4.4 gm/dL (3.4-4.8); Albumin/Globulin Ratio 1.5 (1.2-2.2); Alkaline Phosphatase 53 U/L (46-116); Anion Gap 10 (7-16); Aspartate Amino Transferase 28 U/L (0-34); BUN/Creatinine Ratio 13 Ratio (12-20); Bilirubin,Total 0.6 mg/dL (0.3-1.2); Blood Urea Nitrogen 13 mg/dL (9-23); Calcium 9.6 mg/dL (8.3-10.6); Calcium (Corrected) 9.6 mg/dL (8.5-10.1); Carbon Dioxide 29.2 mMol/L (20.0-31.0); Chloride 104 mMol/L (98-107); Creatinine (Component) 1.0 mg/dL (0.6-1.3); Globulin 3.0 gm/dL (2.3-3.5); Glucose 114 mg/dL (74-106); Osmolality,Calculated 286 (275-295); Potassium 4.4 mMol/L (3.4-5.1); Sodium 143 mMol/L (136-145); Total Protein 7.4 gm/dL (5.7-8.2); eGFR > 60 See Note
== END | disposition home or self-care (01) ==
LOC: SCTO 12:03
PROVIDERS: PCP Family Medicine; Referring Provider Internal Medicine Hematology & Oncology; Visit Provider Internal Medicine Hematology & Oncology
DX: C50.412 Malignant neoplasm of upper-outer quadrant of left female breast (principal)
CPT/HCPCS: 36415; 80053; 85025

== ENCOUNTER 2025-01-17 13:10 | Outpatient (RCR) | payer OTHER, SELFPAY | END 2025-01-26 23:59 | disposition home or self-care (01) | LOC: SCTC 13:10 | PROVIDERS: PCP Family Medicine; Referring Provider Internal Medicine Hematology & Oncology; Visit Provider Internal Medicine Hematology & Oncology | DX: M81.0 Age-related osteoporosis without current pathological fracture (principal); D64.9 Anemia, unspecified; E53.8 Deficiency of other specified B group vitamins; Z86.19 Personal history of other infectious and parasitic diseases; Z85.3 Personal history of malignant neoplasm of breast; Z92.3 Personal history of irradiation; Z92.21 Personal history of antineoplastic chemotherapy | CPT/HCPCS: 96372; J0897 ==

== ENCOUNTER 2025-05-30 10:03 | Emergency (ER) | payer BC, MEDICAID, SELFPAY ==
[2025-05-30 10:28] VITALS: BP 147/77; PULSE 96; RESP 16; TEMP 37.4; O2SAT 96; BMI 17.7
--- NOTE | 2025-05-30 10:39 | EKG_ITS ---
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
--- NOTE | 2025-05-30 10:39 | XR_ITS ---
EXAMINATION: PA lateral chest 2 views TECHNIQUE: Upright PA lateral chest 2 views Date and time: May 30, 2025, 1110 hours INDICATIONS: Left lower chest pain today. FINDINGS: Pneumonia left lower lobe Moderate hyperexpansion Normal heart size Moderate thoracic dextroscoliosis IMPRESSION: Significant pneumonia left lower lobe
--- NOTE | 2025-05-30 10:39 | PD.EDRME ---
Rapid Medical Screening Exam RME Arrival date/time: 05/30/25 10:03 64-year-old female with history of breast CA presents to the emergency department today for complaint of left sided chest pain Chief Complaint: General Adult/Misc Complain Vital signs: Vital Signs Temperature 99.4 F 05/30/25 10:28 Pulse Rate 96 05/30/25 10:28 Respiratory Rate 16 05/30/25 10:28 Blood Pressure 147/77 H 05/30/25 10:28 Pulse Oximetry (%) 96 05/30/25 10:28 Oxygen Delivery Method Room Air 05/30/25 10:28 Vital signs reviewed by provider: Yes Exam: On exam patient well-appearing does not appear ill or toxic and in no acute distress Clinical Impression: Lab work imaging ordered as well as EKG
[2025-05-30 11:45] LABS: Basophils # (Auto) 0.0 Thou/mm3 (0.0-0.2); Basophils % (Auto) 0 % (0-2.5); Eosinophils # (Auto) 0.1 Thou/mm3 (0.0-0.5); Eosinophils % (Auto) 1 % (0-10); Hematocrit 34.7 % (36.0-46.0); Hemoglobin 10.6 g/dL (12.0-16.0); Immature Granulocytes Auto 0.03 Thou/mm3 (0.00-0.00); Lymphocytes # (Auto) 1.5 Thou/mm3 (1.0-4.8); Lymphocytes % (Auto) 14 % (10-50); Mean Corpuscular HGB Conc 30.5 g/dl (31.0-37.0); Mean Corpuscular Hemoglobin 21.5 pg (25.0-35.0); Mean Corpuscular Volume 71 fL (80-100); Monocytes # (Auto) 0.5 Thou/mm3 (0.0-0.8); Monocytes % (Auto) 5 % (0-12); Neutrophils # (Auto) 8.3 Thou/mm3 (1.8-7.7); Neutrophils % (Auto) 79 % (37-80); Nucleated Red Blood Cell # 0.00 Thou/mm3 (0.00-0.00); Nucleated Red Blood Cell % 0 /100 WBC (0); Platelet Count 250 Thou/mm3 (140-440); RDW Standard Deviation 34.2 fL (36.4-46.3); Red Blood Count 4.92 Miln/mm3 (4.00-5.20); White Blood Count 10.5 Thou/mm3 (3.6-11.0)
[2025-05-30 12:29] LABS: B-Type Natriuretic Peptide 35 pg/mL (0-100)
[2025-05-30 13:13] LABS: Alanine Aminotransferase 35 U/L (10-49); Albumin, Serum 4.9 gm/dL (3.4-4.8); Albumin/Globulin Ratio 1.6 (1.2-2.2); Alkaline Phosphatase 88 U/L (46-116); Anion Gap 12 (7-16); Aspartate Amino Transferase 39 U/L (0-34); BUN/Creatinine Ratio 16 Ratio (12-20); Bilirubin,Total 0.4 mg/dL (0.3-1.2); Blood Urea Nitrogen 13 mg/dL (9-23); Calcium 10.0 mg/dL (8.3-10.6); Calcium (Corrected) 10.0 mg/dL (8.5-10.1); Carbon Dioxide 27.1 mMol/L (20.0-31.0); Chloride 102 mMol/L (98-107); Creatinine (Component) 0.8 mg/dL (0.6-1.3); Estimated Creatinine Clearance 44.8 mL/min (>60); Globulin 3.1 gm/dL (2.3-3.5); Glucose 138 mg/dL (74-106); Osmolality,Calculated 283 (275-295); Potassium 3.7 mMol/L (3.4-5.1); Sodium 141 mMol/L (136-145); Total Protein 8.0 gm/dL (5.7-8.2); Troponin I < 0.002 ng/mL (0.0-0.045); eGFR > 60 See Note
[2025-05-30 15:04] VITALS: BP 138/76; PULSE 80; RESP 15; TEMP 37.1; O2SAT 95
--- NOTE | 2025-05-30 15:07 | PD.EDCHEST ---
ED Chest Pain RME/HPI General Chief Complaint: General Adult/Misc Complain Stated Complaint: SEVERE L) SIDE PAIN FROM BREAST CA SURGERY Arrival date/time: 05/30/25 10:03 RME / HPI RME / HPI narrative: 05/30/25 10:03 64-year-old female with history of breast CA presents to the emergency department today for complaint of left sided chest pain DR. STEPHENS MAIN ED EVALUATION 64 year old female with history of breast cancer s/p left breast lumpectomy presents to the ED for evaluation of left-sided chest pain beginning several days ago. Pain described as aching in sensation, localized to the left side without radiation, rating as moderate. States the pain is aggravated with drinking water, lying on the left side, and coughing. No known modifying factors noted. Patient additionally reports she has had subjective fevers every night and a cough for 2 weeks. States she had consulted her PCP who prescribed 5-day course of Azithromycin which she completed with no change. Exam: On exam patient well-appearing does not appear ill or toxic and in no acute distress Impression: Lab work imaging ordered as well as EKG Related Data Home Medications ?Medication ?Instructions ?Recorded ?Confirmed tamoxifen 20 mg tablet 20 mg PO QDAY 10/19/18 02/23/24 pantoprazole 40 mg tablet,delayed 40 mg PO QDAY 04/17/21 02/23/24 release Previous Rx's ?Medication ?Instructions ?Recorded levofloxacin 500 mg tablet 500 mg PO Q24H #5 tabs 05/30/25 Allergies Allergy/AdvReac Type Severity Reaction Status Date / Time sumatriptan Allergy Unknown RASH/ Verified 05/30/25 10:06 FLUSHED Review of Systems Review of Systems Systems Reviewed: All systems reviewed, normal except as documented Past Medical History Past Medical History NEUROLOGIC: Positive Neurological Disorders and Migraine CARDIAC: Positive Hypercholesterolemia and Hypertension RESPIRATORY: Positive Bronchitis GASTROINTESTINAL: Positive Gastrointestinal Disorders and Gastroesophageal Reflux Disease REPRODUCTIVE: Positive Breast Cancer (L) and Previous Pregnancies (4 AND 1 MISCARRIAGE) MUSCULOSKELETAL: Positive Musculoskeletal Disorders and Osteoporosis HEMATOLOGIC: Positive Blood Disorders and Anemia PSYCHO/SOCIAL: Positive Anxiety OTHER HISTORY: Positive Chemotherapy, Radiation Therapy, Chicken Pox and Breast Cancer (L) Family History FAMILY HISTORY: Positive Family Cancer (Parents and brother lung cancer.) Surgical History SURGICAL: Positive Mastectomy (Partial left with lymph node dissection) and Hysterectomy (Complete) Social History SMOKING STATUS: Never smoker ED Exam Narrative Physical exam: GENERAL APPEARANCE: alert and oriented x 4, well-developed, well-nourished, no acute distress HEENT: Normocephalic, atraumatic; pupils equal, round, reactive to light; EOMI; mucous membranes pink, moist; oropharynx clear NECK: Supple LUNGS: Crackles in the left lungL; no wheezes, no rales, no rhonchi HEART: Regular rate, regular rhythm; normal S1, S2; no murmurs ABDOMEN: non distended; normal BS; soft, no tenderness, no guarding, no rebound; no masses, no organomegaly, no hernia BACK: no CVA tenderness EXTREMITIES: atraumatic; no edema NEUROLOGIC: awake; alert and oriented x4; cranial nerves II-XII grossly intact; no focal sensory or motor deficits PSYCHIATRIC: appropriate mood and affect SKIN: warm, dry, normal color; no rashes Course Quality Measures none Orders Category Date Time Status EKG (ED ONLY) *Do not use* NOW Care 05/30/25 10:39 Completed SVN NEEDED Care 05/30/25 15:[address] chest wo con Stat Exams 05/30/25 15:22 Completed EKG (ED Only) Stat Exams 05/30/25 10:39 Draft XR chest 2V Stat Exams 05/30/25 10:39 Completed B-Type Natriuretic Peptide Stat Lab 05/30/25 10:54 Completed CBC Stat Lab 05/30/25 10:54 Completed Comprehensive Metabolic Panel Stat Lab 05/30/25 10:54 Completed Sputum Culture and Gram Stain Stat Lab 05/30/25 16:21 Received Troponin I Stat Lab 05/30/25 10:54 Completed HYDROcodone*/APAP 5/325 [[place] 5/325] Med 05/30/25 17:32 Discontinued 1 tab PO X1 ONE Levofloxacin [Levaquin] Med 05/30/25 17:31 Discontinued 500 mg PO X1 ONE Sodium Chloride Rt Piedad 10% [NS Rt Piedad 10%] Med 05/30/25 15:28 Discontinued 5 ml INH X1 ONE Sodium Chloride Rt Piedad 10% [NS Rt Piedad 10%] Med 05/30/25 15:28 Discontinued 5 ml INH X1 ONE Sputum Induction NOW RT 05/30/25 15:30 Ordered Sputum Induction PRN RT 05/30/25 15:30 Ordered Vital Signs Vital signs: Vital Signs Temperature 99.4 F 05/30/25 10:28 Pulse Rate 96 05/30/25 10:28 Respiratory Rate 16 05/30/25 10:28 Blood Pressure 147/77 H 05/30/25 10:28 Pulse Oximetry (%) 96 05/30/25 10:28 Oxygen Delivery Method Room Air 05/30/25 10:28 Pulse ox is 96% on room air which is adequate. Chest Pain MDM Narrative MDM Narrative:: Celina Guy am scribing for and in the presence of Dr. Stephens. Patient remains clinically stable throughout the emergency department visit. We reviewed all the results, analysis, and treatment plans. Patient is amenable to discharge. Strict return precautions were outlined. Patient data External records reviewed:: [facility] previous records Clinical information provided by:: patient Social determinants that could affect healthcare access:: none Patient has the following chronic illnesses:: left breast cancer s/p left breast lumpectomy How is presenting disease/condition affected by chronic disease/condition?: exacerbated by Evaluation data The following diagnostics were reviewed and interpreted by me:: lab results, radiology exam(s) and EKG tracing(s) (EKG @ 10:55 AM, normal sinus rhythm, rate 89, no STEMI. ) Lab and/or radiology exams considered but not ordered:: None Interpretation Summary: Ordering Physician: Maya TORRES)Jovany NP Date of Service: 05/30/25 Procedure(s): XR chest 2V Accession Number(s): [id number] cc: Maya TORRES)Jovany NP; Ashok Castro MD; Lashon Diaz MD~ EXAMINATION: PA lateral chest 2 views TECHNIQUE: Upright PA lateral chest 2 views Date and time: May 30, 2025, 1110 hours INDICATIONS: Left lower chest pain today. FINDINGS: Pneumonia left lower lobe Moderate hyperexpansion Normal heart size Moderate thoracic dextroscoliosis IMPRESSION: Significant pneumonia left lower lobe Dictated By: Ashok Castro MD Signed By: <Electronically signed by Ashok Castro MD in OV> 05/30/25 1134 Medications / Prescriptions Medications or Prescriptions considered but not ordered:: None Medication administrations:: Medication Administration History Discontinued Medications Hydrocodone Bitart/Acetaminophen (Hydrocodone/Apap 5/325 Tablet) 1 tab PO X1 ONE Stop: 05/30/25 17:33 Levofloxacin (Levofloxacin 250 Mg Tablet) 500 mg PO X1 ONE Stop: 05/30/25 17:32 Sodium Chloride (Sodium Chloride Rt 10% 15 Ml Nebu) 5 ml INH X1 ONE Stop: 05/30/25 15:29 Sodium Chloride (Sodium Chloride Rt 10% 15 Ml Nebu) 5 ml INH X1 ONE Stop: 05/30/25 15:29 See above Consultations Consultation(s) initiated? (list below): No Diagnosis Most likely diagnosis given after review of the tests above:: Pneumonia Admission Indicated Admission indicated?: not indicated Admission Request Was there a request for admission?: No Disposition Plan Disposition Plan: Discharge Discharge Attestation Discharge Attestation: The patient and all family members were given an opportunity to ask questions and understood the discharge instructions. Discharge instructions specifically effects, indications for sooner follow up or return to the emergency department, and the expected course of current diagnosis. Patient condition: Stable Discharge Plan Plan Patient Disposition: HOME (Self Care) Prescriptions/Referrals Prescriptions/Med Rec: New levofloxacin 500 mg tablet 500 mg PO Q24H Qty: 5 0RF No Action tamoxifen 20 mg Tablet 20 mg PO QDAY pantoprazole 40 mg Tablet,Delayed Release (Dr/Ec) 40 mg PO QDAY Referrals: Lashon Arias MD [Primary Care Provider, Family Practice] - In 1 week Problem List Clinical Impression: Pneumonia Patient/Caregiver Discharge Instructions Education Materials: ED Pneumonia (Adult) Print Language: Liberian Stand Alone Forms: [facility] Award Info., Patient Portal Info Letter
--- NOTE | 2025-05-30 15:22 | XR_ITS ---
Examination: CT chest, without intravenous contrast. Sagittal and coronal 2-D reconstructions. Exam date and time: May 30, 2025, 1543 hours, comparison November 30, 2024 INDICATIONS: Chest pain coughing today, pulmonary nodules on CT chest November 30, 2024 CTDI:vol (mGy) 6.90 DLP: (mGycm) 248 Technique: Multiple 3.0 mm axial sections of the chest to been obtained. Bone and lung density settings are obtained. Sagittal and coronal 2-D reconstructions have been obtained. Low dose protocols were performed. One or more of the following dose reduction techniques were used; automated exposure control, adjustment of the mA and/or KV according to patient size, use of iterative reconstruction technique. Findings: No thoracic aortic aneurysm dilatation Pulmonary artery segments are not enlarged Mild calcification left anterior descending coronary artery No mediastinal lymph apathy. Pneumonia in the lingular segment right upper lobe and right middle lobe with dilated bronchi Stable bilateral pulmonary nodules No pulmonary edema No visualized liver or splenic lesion Absent gallbladder No pancreatic mass Prominent osteopenia IMPRESSION: Significant pneumonia in the lingular segment left upper lobe and right middle lobe with mild bronchiectasis Stable pulmonary nodules compared with November 30, 2024
--- NOTE | 2025-05-30 15:22 | PC.NURSE ---
Pt A&O times three, pt in nad, resp are even and unlabored, skin warm and dry, pt able to move all extremities, pt states this morning she started to have pain to left side of chest and she could not tolerate the pain, pt denies increased breathing difficulty, pt is coughing at time of assessment, pt resting in bed, pt on monitor
--- NOTE | 2025-05-30 15:51 | PC.NURSE ---
Pt back from CT
--- NOTE | 2025-05-30 16:16 | PC.NURSE ---
Report given to Cali EUGENE
--- NOTE | 2025-05-30 17:37 | PC.NURSE ---
Meds ordered in RME x2 hours. Received pt at 1630. Called RT to come administer meds for pt.
[2025-05-30] MEDS: LEVOFLOXACIN 250 MG TABLET 500 MG PO (17:56)
[2025-05-30] MEDS: HYDROcodone/APAP 5/325 TABLET 1 TAB PO (17:57)
[2025-05-30 19:12] VITALS: BP 121/82; PULSE 78; RESP 18; TEMP 36.9; O2SAT 97
[2025-05-30 19:47] VITALS: BP 138/76; PULSE 80; RESP 23; TEMP 37.1; O2SAT 99
--- NOTE | 2025-05-30 19:56 | PC.NURSE ---
discharging pt with meds in AUG not completed by RT. Provider okay to dc anyway.
== END 2025-05-30 19:58 | disposition home or self-care (01) ==
PROVIDERS: Nurse Practitioner Primary Care; Emergency Provider Emergency Medicine; PCP Family Medicine
DX: J18.9 Pneumonia, unspecified organism (principal)
CPT/HCPCS: 36415; 71046; 71250; 80053; 83880; 84484; 85025; 87077; 87186; 87205; 93005; 99283; A9270

== ENCOUNTER 2025-06-05 14:05 | Outpatient (RCR) | payer BC, MEDICAID, SELFPAY ==
--- NOTE | 2025-06-12 13:18 | CTCFLWUP_ITS ---
Patient: VANESSA HARPER : 1960 Page 4 of 6 FOLLOW UP NOTE DATE OF SERVICE: 06/05/2025 NAME: VANESSA HARPER ACCOUNT: [id number] : 1960 AGE: 64 INTERVAL HISTORY: Her symptoms of upper respiratory infection secondary to MAC have resolved. Patient follows with specialist and have no symptoms at this point. Patient is tolerating Prolia well. She takes calcium and vitamin D daily Past history Meredith Mazariegos, a patient from the [facility], presents for follow-up regarding a previous diagnosis of Mycobacterium avium complex (MAC) infection. The patient reports persistent symptoms including cough, occasional blood in sputum, chest pain radiating to the back, and fatigue. The patient has been experiencing a chronic cough, which at times produces blood-tinged sputum. She mentions difficulty in producing sputum samples for testing, despite attempts with an inhaler. The chest pain is described as bothersome, extending from the chest to the back. The patient also reports a history of night sweats and weight loss, though her weight has increased from 86 pounds in 2022 to the current 93 pounds. She expresses a desire to gain more weight but struggles with poor appetite and difficulty digesting food. Fatigue is a significant concern for the patient, particularly in the mornings. She attributes this to her longstanding anemia, which predates her hypertension diagnosis. The patient reports feeling tired upon waking and throughout the day, impacting her daily functioning. The patient denies being immunocompromised and states she has not been sick recently. She mentions a recent visit to a specialist in [place], who confirmed the absence of Mycobacterium tuberculosis complex, clarifying her diagnosis as an atypical mycobacterial infection rather than tuberculosis. Medications and Supplements - Inhaler - B12 supplement - Patient has been taking this at home - Silver centrum multivitamin - Mentioned as an alternative to B12 supplement Review of Systems General: Positive for fatigue, weight loss, and decreased appetite. Respiratory: Positive for occasional cough and chest pain. Gastrointestinal: Positive for difficulty digesting food. Musculoskeletal: Positive for back pain. Objective: Vital Signs - Weight: 93 pounds Laboratory, Imaging, and Diagnostic Test Results - Date: Not specified - Hemoglobin: 11.1 g/dL - B12: Low (specific value not provided) - Creatinine: High (specific value not provided) - LDL: Normal (specific value not provided) - Previous results: - Hemoglobin: 10 g/dL (date not specified) - Mammogram (January 2024): Heterogeneity of scone, negative for malignancy - Order routine screening mammogram ONCOLOGY HISTORY: DIAGNOSIS: Malignant neoplasm of upper-outer quadrant of left female breast [ICD10] C50.412 DATE OF DIAGNOSIS: 05/14/2017 STAGE/TNM: T1c TREATMENT HISTORY: Care?Plan Start?Date Cycle Day Intent DOXOrubicin?60,?Cyclophos?600 07/07/2017 1 14 Curative?(adjuvant) DOXOrubicin?60,?Cyclophos?600?+?G 07/29/2017 1 21 Curative?(adjuvant) PACLItaxel?80mg 11/02/2017 1 28 Curative?(adjuvant) PROLia?60mg?every?6?months 07/11/2021 1 180 Palliative HISTORY OF PRESENT ILLNESS: HISTORY OF PRESENT ILLNESS: Vanessa Harper is a 64-year-old Korean speaking, postmenopausal [place] female with following history. 03/27/2017: Left breast diagnostic mammogram showed a suspicious mass at 3 o'clock. Ultrasound done on the same day showed a 1.5 x 1.2 x 1.1 cm hypoechoic area with irregular borders and mild vasculature at 3 o'clock position. 04/14/2017: Left breast biopsy of the mass lesion showed infiltrating ductal carcinoma ER positive, NC negative HER- 2/bia negative with Melisa score of grade 3, 8/9. 07/14/2016: Patient had left breast lumpectomy and sentinel lymph node biopsy. Pathology specimen showed a 2.6 x 1.6 x 1.5 cm unifocal high-grade medullary carcinoma. 7 lymph nodes were negative for metastatic disease Oncotype DX recurrence score is 40. 07/29/2017-49 2018: Patient received 4 cycles of AC. 11/02/2017-03/10/2018: Patient received 12 weekly doses of Taxol. She is currently taking Neurontin for mild tingling in the fingers and feet. 04/12/2018-06/03/2018: Patient had 6300 cGy of radiation to the left breast. 06/10/2018 patient is in the clinic today for follow-up. She still has mild radiation dermatitis on the left breast. She complains of weakness and fatigue. Other than that she seems to be doing okay. 06/24/2018: Bone density test showed osteoporosis. 08/11/2017: Patient complains of weight loss. She lost about 4 pounds. Her current weight is about 93 pounds. She also complains of loss of appetite as well as left-sided chest pains which she grades 7/10. She has been having this pain for last 4 weeks. She complains of dry cough. Denies any abdominal pain. : Patient was started on tamoxifen in view of osteoporosis. 09/16/2018: Patient had CT scan of the chest abdomen and pelvis with IV contrast which showed the following findings. 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 10/20/2018: CT-guided biopsy of the left lung mass did not show any evidence of malignancy. 11/01/2018: Patient was started on INH, rifampin as well as ethambutol for suspicious pulmonary tuberculosis. However Dr. ramires called Ms. Harper last and told her to stop taking the medication since the cultures came back negative as per Ms. Harper. He prescribed oral antibiotics which patient is planning on starting from today. 12/16/2018: CT scan of the chest abdomen and pelvis with IV contrast showed stable bilateral tiny pulmonary nodules without any new nodules. 02/10/2020: PET CT scan? Stable bilateral non hypermetabolic pulmonary nodules excepting right lower lobe pulmonary nodule, now 6 mm compared to IS mm on December 23, 2019 CT study No interval metastatic disease Stable 8 mm focal sclerosis posterior left iliac bone. compared to l0 mm on December 23, 2019 02/21/2020: CT - guided percutaneous lung biopsy of the right lung 15 mm nodule? DIAGNOSIS: Right lung, biopsy: Scant benign lung tissues with focal chronic in?ammation. Fragments of skeletal muscle and ?broadipose tissues. Multiple levels examined. No malignancy in specimen. 11/19/2020: CT scan of the chest with IV contrast?Findings: No thoracic aortic aneurysmal dilatation or dissection No pulmonary artery emboli. Minimal calci?cation septal branch left anterior descending coronary artery No paratraehcal tracheobronehial or bronchopulmonary adenopathy 4 mm pulmonary nodule right upper lobe compared to 3.5 mm on PET/C T February 092019 6 mm pulmonary nodule right middle lobe compared to 7 mm on January 7 mm pulmonary nodule right lower lobe compared to 7 mm on January 2 mm pulmonary nodule left lower lobe compared to 2 mm on January I3 mm pulmonary nodule lelt lower lobe. image ()4. not seen on January 4 mm pulmonary nodule right lower lobe anteriorly not seen on January No focal liver lesions or biliary tract dilatation Absent gallbladder Common hepatic duct 9 mm No pancreatic mass No adrenal mass Aorta normal size Intact osseous structures lMPRESSlON: Compared with PET/CT February 092019: New 13 mm pulmonary nodule left lower lobe New 4 mm pulmonary nodule right lower lobe 01/17/2021: CT scan of the abdomen and pelvis with IV contrast- Impression: No acute process in the abdomen or pelvis 06/09/2024 CT scan no definite change in multiple bilateral subcentimeter pulmonary nodules continue to follow 6 months OTHER MEDICAL HISTORY/CONDITIONS: FAMILY HISTORY: 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 anastrozole - 1 mg 1 tab Daily 2. B12 - 5,000-100 mcg 1 tab Daily 3. Citracal plus D - 315 mg-5 mcg (200 unit) 1 tab Daily Medications Last Reconciled by Lashon Rai MD on 06/05/2025 ALLERGIES: sumatriptan succinate REVIEW OF SYSTEMS: A complete 14-point review of systems was performed and is negative except as noted in interval history. PHYSICAL EXAMINATION: VITAL SIGNS: Temperature?98.4, B/P?111/68, Oxygen?Saturation?99% Weight?88?lbs PAIN: 0 - No pain GENERAL APPEARANCE: Appears well, in no apparent distress, appropriately interactive. HEENT: Normocephalic, no temporal wasting, normal conjunctiva, no scleral icterus, normal hearing, lips without lesions, neck normal range of motion. CARDIOVASCULAR: Not assessed. PULMONARY: Normal respiratory effort, no respiratory distress or use of accessory muscles, speaking in full sentences, no tachypnea. EXTREMITIES: No pedal edema or cyanosis. SKIN: Normal skin appearance. NEUROLOGIC: Alert and oriented x4. PSHYCHIATRIC: Appropriate affect, mood normal, behavior normal, intact thought and speech. LABORATORY DATA: I have personally reviewed and interpreted each of the patient?s relevant lab tests, abnormal findings are below: Date 01/16/25 05/30/25 06/06/25 ??WHITE?BLOOD?COUNT?(Thou/mm3) ? 10.5 ? ??RED?BLOOD?COUNT?(Miln/mm3) ? 4.92 ? ??HEMOGLOBIN?(gm/dl) ? 10.6?L ? ??HEMATOCRIT?(%) ? 34.7?L ? ??PLATELET?COUNT?(Thou/mm3) ? 250 ? ??NEUTROPHILS?%,?AUTO?(%) ? 79 ? ??LYMPH?%,?AUTO?(%) ? 14 ? ??NEUTROPHILS,?AUTO?(Thou/mm3) ? 8.3?H ? ??GLUCOSE,RANDOM?(mg/dL) 114?H 138?H ? ??BLOOD?UREA?NITROGEN?(mg/dL) 13 13 ? ??CREATININE?(mg/dL) 1.00 0.80 ? ??SODIUM?(mmol/L) 143 141 ? ??POTASSIUM?(mmol/L) 4.4 3.7 ? ??CHLORIDE?(mmol/L) 104 102 ? ??CrCl?(CandG)?(ml/min) 37.85 46.70 ? ??AST/SGOT?(Unit/L) 28 39?H ? ??ALT/SGPT?(Unit/L) 22 35 ? ??ALKALINE?PHOSPHATASE?(Unit/L) 53 88 ? ??BILIRUBIN,?TOTAL?(mg/dL) 0.6 0.4 ? ??PROTEIN?TOTAL?(gm/dl) 7.4 8.0 ? ??ALBUMIN,?SERUM?(gm/dl) 4.4 4.9?H ? ??GLOBULIN?(gm/dl) 3.0 3.1 ? ??ALBUMIN/GLOBULIN?RATIO 1.5 1.6 ? ??CALCIUM,?SERUM?(mg/dL) 9.6 10.0 ? ??CALCIUM?SERUM?(CORRECTED)?(mg/dL) 9.6 10.0 ? ??TOTAL?IRON?BINDING?CAP?(S*)?(mcg/dL) ? ? 297 ??UNBOUND?IBC?(mcg/dL) ? ? 232 ASSESSMENT/PLAN: Mycobacterium avium complex (MAC) infection Assessment: Patient has a history of M. avium infection, which was confirmed by a specialist in [place]. The infection is classified as an atypical mycobacterial infection, distinct from Mycobacterium tuberculosis complex. Patient's symptoms are resolved Continue to follow-up with the specialist Anemia Assessment: Patient reports a long-standing history of anemia predating hypertension diagnosis. Recent lab work shows hemoglobin A of 11.1 g/dL, which has improved from a previous value of 10 g/dL. Workup for anemia has been largely negative, with normal creatinine, folate, and most other values. B12 l evels were noted to be slightly low. Plan: Continue B12 supplementation - Continue monitoring hemoglobin levels Fatigue Assessment: Patient reports persistent fatigue, particularly upon waking in the morning. This may be related to the mild anemia and low B12 levels. Continue B12 preventive care Assessment: Patient had a diagnostic mammogram in January of the previous year, which showed heterogeneity but was ultimately negative. Plan: osteoporosis, currently on Prolia and Citracal tablets. Continue Prolia injections. Continue Citracal tablet p.o. Twice daily stage IIa ER positive, NC positive, HER-2/bia negative high Oncotype DX recurrence score of 40 medullary carcinoma of the left breast. Status post adjuvant chemotherapy, radiation therapy. RTC in 4 weeks ORDERS: Order # Description [id number] Basic Metabolic Panel [id number] Basic Metabolic Panel [id number] Basic Metabolic Panel [id number] Basic Metabolic Panel [id number] Basic Metabolic Panel RETURN TO CLINIC: I reviewed the diagnosis, prognosis, and recommended treatment/procedure options with the patient (and/or their legal technical support representative), including the potential benefits, risks, side effects and alternative therapies. We also discussed the option of no treatment and the possibility of clinical trial participation, if applicable. All questions were addressed, and they demonstrated understanding. They provided informed consent to proceed with the proposed plan of care. BILLING AND COMPLIANCE: I reviewed external records from providers outside my specialty as summarized above. I spent a total of 50 minutes on this patient?s care on the day of their visit excluding time spent related to any billed procedures. This time includes time spent with the patient as well as time spent documenting in the medical record, reviewing patients records and tests, obtaining history, placing orders, communicating with other healthcare professionals, counseling the patient, family or caregiver, and/or care coordination for the diagnoses above. Electronically Signed by: Dawood Oropeza MD T: 1:16 PM CC: Lashon?KADEN Arias, Yosvany?Suresh? PCP: Lashon Chapman Referring: Lashon Chapman This document was completed utilizing speech recognition software. Grammatical errors, random word insertions, pronoun errors, and incomplete sentences are an occasional consequence of this system due to software limitations, ambient noise, and hardware issues. Any formal questions or concerns about the content, text or information contained within the body of this dictation should be directly addressed to the provider for clarification.
== END 2025-06-28 23:59 | disposition home or self-care (01) ==
LOC: SCTC 14:05
PROVIDERS: PCP Family Medicine; Referring Provider Family Medicine; Visit Provider Internal Medicine Hematology & Oncology
DX: C50.812 Malignant neoplasm of overlapping sites of left female breast (principal); Z17.0 Estrogen receptor positive status [ER+]; Z17.22 Progesterone receptor negative status; Z17.32 Human epidermal growth factor receptor 2 negative status; M81.0 Age-related osteoporosis without current pathological fracture; Z92.21 Personal history of antineoplastic chemotherapy; Z92.3 Personal history of irradiation; D64.9 Anemia, unspecified; Z86.19 Personal history of other infectious and parasitic diseases; Z79.811 Long term (current) use of aromatase inhibitors
CPT/HCPCS: 99212; G0463

== ENCOUNTER → 2025-06-06 | Outpatient (CLI) | payer BC, MEDICAID, SELFPAY ==
--- NOTE | 2025-06-06 15:08 | XR_ITS ---
EXAMINATION: PA lateral chest 2 views TECHNIQUE: Upright PA lateral chest 2 views Date and time: June 06, 2025, 1515 hours, comparison May 30, 2025 INDICATIONS: History pneumonia 2 months ago. FINDINGS: Pneumonia in the lingular segment left upper lobe obscuring detail at the left cardiac contour Moderate hyperexpansion Mild prominence left ventricle Prominent osteopenia IMPRESSION: Significant pneumonia lingular segment left upper lobe
[2025-06-06 17:10] LABS: Ferritin 396 ng/mL (7.3-270.7); Iron 65 mcg/dL (50-170); Percent Iron Saturation 21 % (20-55); Total Iron Binding Capacity 297 mcg/dL (250-425); Unsaturated Iron Binding 232 (225-295)
[2025-06-06 17:15] LABS: Folate > 24.00 ng/mL (>5.38); Vitamin B12 > 2000 pg/mL (211-911)
== END | disposition home or self-care (01) ==
LOC: CDIM 14:45 → SCTO 15:24
PROVIDERS: PCP Family Medicine; Referring Provider Family Medicine; Visit Provider Radiology Diagnostic Radiology
DX: J18.9 Pneumonia, unspecified organism (principal); C50.412 Malignant neoplasm of upper-outer quadrant of left female breast
CPT/HCPCS: 36415; 71046; 82607; 82728; 82746; 83540; 83550

== ENCOUNTER → 2025-06-09 | Outpatient (CLI) | payer BC, MEDICAID, SELFPAY ==
[2025-06-10 15:06] LABS: Cocci Serology, IgM Negative (Negative)
[2025-06-11 15:11] LABS: Cocci Serology, IgG Negative (Negative)
== END | disposition home or self-care (01) ==
LOC: COPL 12:29
PROVIDERS: PCP Family Medicine; Referring Provider Family Medicine; Visit Provider Family Medicine
DX: J18.9 Pneumonia, unspecified organism (principal)
CPT/HCPCS: 36415; 86331; 86635